=== PATIENT | male | born 1950 | race Two or more races ===

== ENCOUNTER 2017-04-25 12:25 | Inpatient (IN) | payer OTHER ==
[~2017-04-25] VITALS: Ht 177.8 cm; Wt 71.6 kg
[2017-04-25] MEDS ORDERED: AMLO5TAB2 PO (12:41)
[2017-04-25] MEDS ORDERED: METO1TAB32 PO (12:41)
[2017-04-25] MEDS ORDERED: ASPI81TA85 PO (12:41)
[2017-04-25 13:55] LABS: BASO # 0.2 K/mm3 (0.0-0.2); BASO % 1.6 % (0.0-1.0); EOS # 0.3 K/mm3 (0.0-0.50); EOS % 2.6 % (0.0-3.0); LARGE UNSTAINED CELL # 0.3 K/mm3 (0.0-0.4); LARGE UNSTAINED CELL % 2.9 % (0.0-4.0); LYMPH # 2.8 K/mm3 (1.5-4.5); LYMPH % 24.8 % (24.0-44.0); MEAN CORPUSCULAR HEMOGLOBIN 33.2 pg (27.0-33.0); MEAN CORPUSCULAR HGB CONC 33.1 g/dl (32.0-36.5); MEAN CORPUSCULAR VOLUME 100.3 fl (80.0-96.0); MONO % 8.9 % (0.0-5.0); NEUTROPHILS # 6.6 K/mm3 (1.8-7.7); NEUTROPHILS % 59.1 % (36.0-66.0); PLATELET COUNT, AUTOMATED 389 k/mm3 (150-450); RED CELL DISTRIBUTION WIDTH 12.6 % (11.5-14.5); WHITE BLOOD COUNT 11.2 K/mm3 (4.0-10.0)
[2017-04-25 14:01] LABS: INR 0.87
--- NOTE | 2017-04-25 14:07 | REP ---
REASON: Stroke-like symptoms. PRIORS: None. There is an area of abnormal lucency in the right parieto-occipital region measuring approximately 3 cm. There is an additional area of abnormal lucency seen in the centrum semiovale on the right measuring approximately 2.5 cm. A small focus of low density is seen in the head of the caudate nucleus on the right. There is no acute intracranial hemorrhage. There is no shift of the midline structures. The ventricles and sulci are within normal limits for the patient's age. There is no skull fracture. The imaged paranasal sinuses and mastoid air cells are clear. IMPRESSION: Age undetermined but at least subacute infarctions in the right parietal lobe and head of the caudate nucleus on the right, as described above. Signed by Krish Rivers DO 04/25/2017 02:30 P
[2017-04-25 14:22] LABS: ANION GAP 5 MEQ/L (8-16); BLOOD UREA NITROGEN 17 MG/DL (7-18); CARBON DIOXIDE LEVEL 30 MEQ/L (21-32); CHLORIDE LEVEL 101 MEQ/L (98-107); CREATININE FOR GFR 1.24 MG/DL (0.70-1.30); GLOMERULAR FILTRATION RATE > 60.0 (>49); GLUCOSE, FASTING 93 MG/DL (80-110); POTASSIUM SERUM 4.1 MEQ/L (3.5-5.1); SODIUM LEVEL 136 MEQ/L (136-145)
--- NOTE | 2017-04-25 15:11 | REP ---
CHEST: Single view. No comparison. There is no evidence of acute infiltrate. No pleural effusion is seen. The heart is normal in size. The mediastinal silhouette is unremarkable. The visualized osseous structures are intact. IMPRESSION: No acute pulmonary disease. Signed by Yao Hernandez MD 04/25/2017 03:32 P
--- NOTE | 2017-04-25 15:15 | HPEPDOC ---
Medical History and Physical Date of Admission 04/25/17 History and Physical ATTENDING: Dr. Miner PCP: Dr Berg. [place] CC: neurologic deficits HPI: 66yoM with a past medical history significant for HTN accompanied to the ED by his son. His son assisted him to [place] from [place] after an apparent fall approximately 1 week ago. The patient states about one week ago he was getting something out of the refrigerator when he "tipped over" and fell to the floor. He denies loss of consciousness. Denies headache injury. He states he subsequently got up and "went about my business". Friend subsequently checked in on him and reported to his son that he was noted to be "off ". His son brought him back to [place] from [place] for further evaluation. The patient states he has felt "a little bit goofy " and at times his vision seems slightly blurry and he feels somewhat dizzy. According to his son on Monday they noticed some possible facial drooping which seemed to subsequently improved. They have also noticed shuffling gait and some difficulty with word finding. The patient denies headache, diplopia, vertigo, dysarthria or dysphagia. He denies weakness in arms or legs. No numbness or tingling. Denies any fevers, chills, weakness, fatigue, BENAVIDES, CP, SOB, cough, palpitations, abdominal pain, N/V/D or changes in bowel or bladder habits. Upon presentation to the hospital the patient was found to have subacute CVA, thus the hospitalist team was consulted. PMHx: HTN Tobacco use PSHX: Splenectomy. Hernia repair SOCHX: Resides in: [place], lives alone Marital Status: Kids: 1 Employment: Retired from [employer] Tobacco use: One pack per day for 50 years ETOH: "Whatever I want", patient states 2 beers in the past 10 days Illicit Drugs: Denies Recent travel: Traveled here from [place] Advanced directives: None FAMHX: Mother: , unknown Father: , CVA Siblings: One half brother Alive, well Children: Alive, well Unexpected deaths due to medical reasons: None. ROS: As noted in HPI, otherwise 11pt ROS of systems reviewed and unremarkable. PE: GEN: 66 yo M, appears stated age. Well-nourished, well developed. No acute distress. Alert and oriented x 3. Pleasant, interactive. HEENT: Normocephalic, atraumatic. Pupils are equal, round, and reactive to light. Extraocular movements are intact. No nystagmus appreciated. Sclera are nonicteric. Conjunctiva without injection. Nose midline. Nasal turbinates without bogginess. EACs both patent BL. The patient has puffing out his cheeks and smiling without asymmetry noted. Moist mucous membranes. Upper dentures. Pharynx pink and moist, no cobblestoning. Neck supple, trachea midline. No lymphadenopathy or thyromegaly appreciated. CHEST: Regular rate and rhythm, +S1, +S2 LUNGS: Clear to auscultation bilaterally. No wheezes, rales, or rhonchi. Breathing appears symmetric and easy. Patient is speaking in full sentences. No accessory muscle use. ABD: Round, soft, non-tender, non-distended. +Bowel sounds throughout. No rebound or guarding. No costovertebral angle tenderness. EXT: Pulses 2+ bilaterally dorsalis pedis and radial. No lower extremity edema appreciated. SKIN: [place], dry, warm. Capillary refill <2sec. No rashes. NEURO: Alert and oriented x 3. Cranial nerves III-XII are intact. Speech somewhat slow at times and sometimes has difficulty answering questions. No apparent weakness in upper or lower extremities. FTN intact. MAURO intact. Gait is not tested at this time. CXR: pending CT: Age undetermined but at least subacute infarctions in the right parietal lobe and head of the caudate nucleus on the right, as described above EKG: SB 55 bpm, NSST abn. A&P: 66yoM with a past medical history significant for HTN accompanied to the ED by his son. His son assisted him to [place] from [place] after an apparent fall approximately 1 week ago. The patient states about one week ago he was getting something out of the refrigerator when he "tipped over" and fell to the floor. He denies loss of consciousness. Denies headache injury. He states he subsequently got up and "went about my business". Friend subsequently checked in on him and reported to his son that he was noted to be "off ". His son brought him back to [place] from [place] for further evaluation. The patient states he has felt "a little bit goofy " and at times his vision seems slightly blurry and he feels somewhat dizzy. According to his son on Monday they noticed some possible facial drooping which seemed to subsequently improved. They have also noticed shuffling gait and some difficulty with word finding. 1. The patient will be admitted to PCU for at least [address] Miner's service. Patient is discussed with Dr. Rodriguez. 2. Subacute CVA. PCU, TM. Add on lipid profile. Serial CIP/troponin. MRI/MRA brain requested. Carotid ultrasound requested. TTE requested. Request neurology consultation, discussed with Dr Pan who will see Pt. Recommends [id number] pending results of testing. Lipitor 20 mg daily. PT/OT/speech therapy. Request copy of records from PCP in [place]. 3. Hypertension. Continue Norvasc 5 mg daily with hold parameters. 4. Sinus bradycardia. PCU/TM. DVT prophylaxis. The patient is a full code. Vital Signs Vital Signs Date Time Temp Pulse Resp B/P (MAP) Pulse Ox O2 Delivery O2 Flow Rate FiO2 04/25/17 14:25 62 99 04/25/17 14:22 153/70 (97) 04/25/17 14:12 Room Air 04/25/17 14:11 18 04/25/17 12:26 97.8 Laboratory Data Labs 24H Laboratory Tests 2 04/25/17 13:38: White Blood Count 11.2H, Red Blood Count 4.65, Hemoglobin 15.5, Hematocrit 46.7 , Mean Corpuscular Volume 100.3H, Mean Corpuscular Hemoglobin 33.2H, Mean Corpuscular Hemoglobin Concent 33.1, Red Cell Distribution Width 12.6, Platelet Count 389, Neutrophils (%) (Auto) 59.1, Lymphocytes (%) (Auto) 24.8, Monocytes ( %) (Auto) 8.9H, Eosinophils (%) (Auto) 2.6, Basophils (%) (Auto) 1.6H, Neutrophils # (Auto) 6.6, Lymphocytes # (Auto) 2.8, Monocytes # (Auto) 1.0H, Eosinophils # (Auto) 0.3, Basophils # (Auto) 0.2, Large Unclassified Cells % 2.9 , Large Unclassified Cells # 0.3, Prothrombin Time 11.9L, Prothromb Time International Ratio 0.87, Activated Partial Thromboplast Time 25.5L, Anion Gap 5L, Glomerular Filtration Rate > 60.0, Blood Urea Nitrogen 17, Creatinine 1.24, Sodium Level 136, Potassium Level 4.1, Chloride Level 101, Carbon Dioxide Level 30, Calcium Level 9.0, Total Creatine Kinase 67, Creatine Kinase MB 1.0, Creatine Kinase MB Relative Index 1.49, Troponin I < 0.02 04/25/17 13:57: Bedside Glucose (Misc Panel) 87 CBC/BMP Laboratory Tests 04/25/17 13:38 Red Blood Count 4.65, Mean Corpuscular Volume 100.3 H, Mean Corpuscular Hemoglobin 33.2 H, Mean Corpuscular Hemoglobin Concent 33.1, Red Cell Distribution Width 12.6, Neutrophils (%) (Auto) 59.1, Lymphocytes (%) (Auto) 24.8, Monocytes (%) (Auto) 8.9 H, Eosinophils (%) (Auto) 2.6, Basophils (%) ( Auto) 1.6 H, Neutrophils # (Auto) 6.6, Lymphocytes # (Auto) 2.8, Monocytes # ( Auto) 1.0 H, Eosinophils # (Auto) 0.3, Basophils # (Auto) 0.2, Calcium Level 9.0 , Total Creatine Kinase 67 Home Medications Scheduled Amlodipine Besylate (Amlodipine Besylate) 5 Mg Tab, 5 MG PO DAILY Aspirin (Aspirin) 325 Mg Tab, 325 MG PO DAILY Atorvastatin Calcium (Atorvastatin Calcium) 20 Mg Tab, 20 MG PO QHS Cyanocobalamin (B-12) 500 Mcg Tab, 500 MCG PO DAILY Nicotine (Nicotine Transdermal Syst) 14 Mg/24 Hr Dis, 1 PATCH TD DAILY Allergies Coded Allergies: No Known Allergies (Unverified , 04/25/17) Esther Canales Apr 25, 2017 15:15 SOL RODRIGUEZ MD May 14, 2017 22:03
[2017-04-25] MEDS: ASPIRIN 325 MG TAB PO SCH (15:35)
[2017-04-25] MEDS ORDERED: NICOTINE 21MG/24HR 1 EA TRANSDERMAL TD STA (17:15)
--- NOTE | 2017-04-25 17:25 | REP ---
CAROTID ULTRASOUND: Real-time ultrasound evaluation and duplex Doppler interrogation of the extracranial carotid vasculature is performed. There is mild to moderate plaquing and narrowing in both carotid bulbs extending into the internal and external carotid arteries. Luminal narrowing is less than 50%. There is no evidence of hemodynamically significant stenosis of either internal carotid artery. Normal flow velocities are seen. The vertebral arteries demonstrate normal direction of flow. RIGHT LEFT Peak systolic velocity ICA 65 cm/s 56.1 cm/s End diastolic velocity ICA 10.3 cm/s 16.2 cm/s Peak systolic velocity CCA 99.7 cm/s 83.8 cm/s Peak systolic velocity ECA 106.9 cm/s 134.7 cm/s ICA/CCA ratio 0.65 0.67 IMPRESSION: Bilateral luminal narrowing of the internal carotid arteries less than 50%. No evidence of hemodynamically significant stenosis. Signed by Yao Hernandez MD 04/25/2017 05:16 P
[2017-04-25 19:30] VITALS: BP 162/72
[2017-04-25] MEDS: ATORVASTATIN 20 MG TAB PO SCH (20:03)
[2017-04-25 20:55] VITALS: BP 167/79
[2017-04-26] VITALS (7 sets, daily range): BP systolic 134–156; BP diastolic 70–86
[2017-04-26 05:23] LABS: MEAN CORPUSCULAR HEMOGLOBIN 32.9 pg (27.0-33.0); MEAN CORPUSCULAR HGB CONC 32.7 g/dl (32.0-36.5); MEAN CORPUSCULAR VOLUME 100.4 fl (80.0-96.0); RED CELL DISTRIBUTION WIDTH 12.8 % (11.5-14.5); WHITE BLOOD COUNT 9.7 K/mm3 (4.0-10.0)
[2017-04-26 05:47] LABS: ALBUMIN 3.1 GM/DL (3.2-5.2); ALBUMIN/GLOBULIN RATIO 1.07 (1.00-1.93); ALKALINE PHOSPHATASE 47 U/L (45-117); ALT/SGPT 29 U/L (12-78); ANION GAP 6 MEQ/L (8-16); AST/SGOT 17 U/L (15-37); BILIRUBIN,TOTAL 0.4 MG/DL (0.2-1.0); BLOOD UREA NITROGEN 19 MG/DL (7-18); CALCIUM LEVEL 8.7 MG/DL (8.8-10.2); CARBON DIOXIDE LEVEL 26 MEQ/L (21-32); CHLORIDE LEVEL 104 MEQ/L (98-107); CREATININE FOR GFR 0.99 MG/DL (0.70-1.30); GLOMERULAR FILTRATION RATE > 60.0 (>49); GLUCOSE, FASTING 100 MG/DL (80-110); SODIUM LEVEL 136 MEQ/L (136-145)
[2017-04-26] MEDS: ASPIRIN 325 MG TAB PO SCH (08:30)
[2017-04-26] MEDS: amLODIPine 5 MG TAB PO SCH (08:30)
[2017-04-26] MEDS: NICOTINE 14 MG/24 HR TRANSDERMAL TD SCH (08:31)
--- NOTE | 2017-04-26 09:03 | CR ---
DATE OF CONSULTATION: 04/25/2017 REFERRING PHYSICIAN: Dr. Damian Rodriguez REASON FOR CONSULTATION: Gait difficulty and left-sided weakness. HISTORY OF PRESENT ILLNESS: Yobany Lanier is a 66-year-old man from [place] who was brought to emergency department by his son. Patient was living in [place]. He states that 12 days ago, on , he was in his kitchen and was trying to open the refrigerator when he tripped and fell. He could not get up for 5 minutes. There was no loss of consciousness. He decided to take it easy and go about his business and did not seek medical attention. He did not have any numbness, weakness of one side or the other. He denies neck pain, back pain, loss of consciousness or seizures. He was found by his daughter 3 days later, on Monday, and he did not seem fully alert. He did not talk and walk normally. He had extremely low energy. He seemed a little off and a little bit goofy. There was mentioning of noticing some facial droop. His son brought him to [place] and he was brought to [facility] for further evaluation. He noted some word-finding difficulty and shuffling gait. DIAGNOSTIC STUDIES: A CT scan of head, MRI of brain showed subacute right parietal and caudate nucleus ischemic stroke. His MRA brain ultrasound of neck are pending. PAST MEDICAL HISTORY: 1. Hypertension. 2. Splenectomy. 3. Hernia repair. SOCIAL HISTORY: He was living in [place]. He smokes one pack per day. He denies alcohol or illicit drugs. FAMILY HISTORY: Father had stroke. HOME MEDICATIONS: - Aspirin 81 mg by mouth daily, and he was on a blood pressure medicine but his son is not sure about the name of his blood pressure medicine. REVIEW OF SYSTEMS: All systems were reviewed and were found to be noncontributory except as mentioned in history present illness. PHYSICAL EXAMINATION: Blood pressure 192/79, pulse 62, respiratory rate 18, 97% saturation on room air. Heart: Regular rate and rhythm. Lungs: Clear to auscultation. Abdomen: Soft, nontender, nondistended. Neurologic exam: Patient is awake, alert, oriented to place, person and time. Normal speech, comprehension and repetition. Extraocular muscles are intact. No facial weakness. Tongue and uvula are Midline. 5/5 strength in all four extremities. He has decreased left hand coordination. He has left-sided mild dysmetria. His gait is mildly unsteady and mildly ataxic due to left-sided dysmetria. He has decreased rapid finger movements of left hand. Deep tendon flexes are 2+ throughout. Normal sensation to light touch, pinprick, vibration sensation, etc. ASSESSMENT: 1. Subacute right parietal and caudate nucleus ischemic strokes. 2. Tobacco abuse. 3. Hypertension. PLAN: 1. MRA brain. 2. Ultrasound of neck and echocardiogram. 3. He must quit smoking. 4. Lipitor 20 mg by mouth daily. 5. Aspirin 325 mg by mouth daily. 6. Physical and occupational therapy. 7. Follow with our office in 1 month after hospital discharge.
[2017-04-26 09:39] LABS: VITAMIN B12 LEVEL 246 PG/ML (247-911)
[2017-04-26 09:40] LABS: FOLATE 8.3 NG/ML (>5.4)
--- NOTE | 2017-04-26 10:51 | REP ---
REASON FOR EXAM: Weakness and falling. COMPARISON: None. The craniovertebral junction is within normal limits. The ventricles and sulci are within normal limits. There are no extra-axial fluid collections. There is no shift of the midline structures. Scattered T2 and FLAIR hypersignal intensities are seen in the periventricular deep cerebral white matter and in the deep cerebral white matter of the nair radiata and centrum semiovale bilaterally, right greater than left. On the DWI images, increased signal is seen in the head of the caudate nucleus on the right extending into the right internal capsule along with hypersignal in the right posterior parietal lobe region near the parieto-occipital watershed distribution. These areas show no definitive abnormal ADC low signal correlates. There is no evidence of an acute intracranial hemorrhage. The orbital and petrous structures, cerebellopontine angles, and posterior fossa are within normal limits. The sella turcica, cavernous, and paracavernous structures are within normal limits. There is mucosal thickening in the right maxillary sinus and mild mucosal thickening in the ethmoid bulla. IMPRESSION: 1. Subacute infarction involving the right cerebral hemisphere as described above and extending into the right cerebral subcortical nair radiata. 2. Deep white matter ischemic disease. 3. Right maxillary sinus mucosal thickening. This examination was obtained in my [place]ia 04/25/2017 at 4:23 p.m. and has been brought to my attention for the first time for interpretation today at this time. Signed by Krish Rivers DO 04/26/2017 02:21 P
--- NOTE | 2017-04-26 10:53 | REP ---
REASON: Weakness and falling. PRIORS: None. TECHNIQUE: MIP reformatted 3D images of the [place] and proximal intracranial vasculature were obtained. The source images wee obtained in the axial scan plane using gradient-echo technique. FINDINGS: There is no evidence of an aneurysm or AVM. Perfusion to the hemispheres is symmetric. There is no evidence of significant signal decrease that would be considered consistent with an area of occlusion or severe stenosis. IMPRESSION: Unremarkable brain MRA. Signed by Krish Rivers DO 04/26/2017 02:21 P
--- NOTE | 2017-04-26 11:48 | IPNPDOC ---
Subjective Date Seen The patient was seen on 04/26/17. Subjective Chief Complaint/HPI The patient is a 66-year-old male admitted with a reason for visit of CVA. Events since last encounter feeling well , does not offer any complaints, no trouble in speech , no difficulty in swallowing , does have some disbalance which he says has been there from before and family says he is having shuffling gait. no fever or chills, no chest pain or sob, no abdominal pain nausea or vomiting or diarrhea Objective Physical Examination General Exam: Positive: Alert, Cooperative, No Acute Distress Eye Exam: Positive: PERRLA, Conjunctiva & lids normal, EOMI, Negative: Sclera icteric ENT Exam: Positive: Atraumatic, Mucous membr. moist/pink, Pharynx Normal Neck Exam: Positive: Supple, Negative: JVD, thyromegaly Chest Exam: Positive: Clear to auscultation, Normal air movement Heart Exam: Positive: Rate Normal, Regular Rhythm, Normal S1, Normal S2, Negative: Murmurs, Rubs Telemetry: Positive: No significant arrhythmia Abdomen Exam: Positive: Normal bowel sounds, Soft, Negative: Tenderness, Hepatospenomegaly Extremity Exam: Positive: Normal pulses, Negative: Clubbing, Cyanosis, Edema Assessment /Plan Problems (1) CVA (cerebrovascular accident) Status: Acute Problem Text: subacute seems to have occurred 2 weeks ago. will continue with ASA and statin will monitor on telemetry for any arrhythmias infarction in the right cerebral hemisphere in the parietal area. echo has been ordered. PT . (2) Hypertension Status: Chronic (3) Encounter for smoking cessation counseling Status: Chronic Problem Text: patient says using the nicotine patach and is trying to stop on his own , He is willing to continue with the nicotine patches at home to help with quitting smoking. Plan/VTE VTE Prophylaxis Ordered?: Yes VS, I&O, 24H, Fishbone Vital Signs/I&O Vital Signs Date Time Temp Pulse Resp B/P (MAP) Pulse Ox O2 Delivery O2 Flow Rate FiO2 04/26/17 08:30 66 137/78 04/26/17 08:00 98.7 18 95 Room Air I&O- Last 24 Hours up to 6 AM 04/26/17 06:00 Intake Total 0 ml Output Total 500 ml Balance -500 ml Laboratory Data 24H LABS Laboratory Tests 2 04/25/17 13:38: White Blood Count 11.2H, Red Blood Count 4.65, Hemoglobin 15.5, Hematocrit 46.7 , Mean Corpuscular Volume 100.3H, Mean Corpuscular Hemoglobin 33.2H, Mean Corpuscular Hemoglobin Concent 33.1, Red Cell Distribution Width 12.6, Platelet Count 389, Neutrophils (%) (Auto) 59.1, Lymphocytes (%) (Auto) 24.8, Monocytes ( %) (Auto) 8.9H, Eosinophils (%) (Auto) 2.6, Basophils (%) (Auto) 1.6H, Neutrophils # (Auto) 6.6, Lymphocytes # (Auto) 2.8, Monocytes # (Auto) 1.0H, Eosinophils # (Auto) 0.3, Basophils # (Auto) 0.2, Large Unclassified Cells % 2.9 , Large Unclassified Cells # 0.3, Prothrombin Time 11.9L, Prothromb Time International Ratio 0.87, Activated Partial Thromboplast Time 25.5L, Anion Gap 5L, Glomerular Filtration Rate > 60.0, Blood Urea Nitrogen 17, Creatinine 1.24, Sodium Level 136, Potassium Level 4.1, Chloride Level 101, Carbon Dioxide Level 30, Calcium Level 9.0, Total Creatine Kinase 67, Creatine Kinase MB 1.0, Creatine Kinase MB Relative Index 1.49, Troponin I < 0.02 04/25/17 13:57: Bedside Glucose (Misc Panel) 87 04/25/17 15:29: Triglycerides Level 174H, LDL Cholesterol 125.2H, Total Cholesterol 193, Non- HDL Cholesterol (LDL + VLDL) 160, Total HDL Cholesterol 33L, Cholesterol/HDL Ratio 5.848H 04/25/17 15:54: Urine Appearance CLEAR, Urine Color YELLOW, Urine pH 6.0, Urine Specific [place] 1.010, Urine Protein 1+H, Urine Glucose (UA) NEGATIVE, Urine Ketones NEGATIVE, Urine Urobilinogen 0.2, Urine Bilirubin NEGATIVE, Urine Leukocyte Esterase NEGATIVE, Urine Blood NEGATIVE, Urine Nitrite NEGATIVE, Urine WBC (Auto ) 1, Urine RBC (Auto) 1, Urine Hyaline Casts (Auto) 0, Urine Bacteria (Auto) NEGATIVE, Urine Squamous Epithelial Cells 0, Urine Sperm (Auto) 04/25/17 17:44: Total Creatine Kinase 63, Creatine Kinase MB 1.0, Creatine Kinase MB Relative Index 1.58, Troponin I 0.02 04/26/17 02:11: Total Creatine Kinase 50, Creatine Kinase MB 1.0, Creatine Kinase MB Relative Index 2.00, Troponin I 0.02 04/26/17 05:04: Anion Gap 6L, Glomerular Filtration Rate > 60.0, Blood Urea Nitrogen 19H, Creatinine 0.99, Sodium Level 136, Potassium Level 4.0, Chloride Level 104, Carbon Dioxide Level 26, Calcium Level 8.7L, Aspartate Amino Transf (AST/SGOT) 17, Alanine Aminotransferase (ALT/SGPT) 29, Alkaline Phosphatase 47, Total Bilirubin 0.4, Total Protein 6.0L, Albumin 3.1L, Albumin/Globulin Ratio 1.07, Vitamin B12 Level 246L, Folate 8.3 04/26/17 09:49: Total Creatine Kinase 51, Creatine Kinase MB 1.0, Creatine Kinase MB Relative Index 1.96, Troponin I < 0.02 CBC/BMP Laboratory Tests 04/25/17 13:38 Red Blood Count 4.65, Mean Corpuscular Volume 100.3 H, Mean Corpuscular Hemoglobin 33.2 H, Mean Corpuscular Hemoglobin Concent 33.1, Red Cell Distribution Width 12.6, Neutrophils (%) (Auto) 59.1, Lymphocytes (%) (Auto) 24.8, Monocytes (%) (Auto) 8.9 H, Eosinophils (%) (Auto) 2.6, Basophils (%) ( Auto) 1.6 H, Neutrophils # (Auto) 6.6, Lymphocytes # (Auto) 2.8, Monocytes # ( Auto) 1.0 H, Eosinophils # (Auto) 0.3, Basophils # (Auto) 0.2, Calcium Level 9.0 , Total Creatine Kinase 67 04/26/17 05:04 Red Blood Count 4.25 L, Mean Corpuscular Volume 100.4 H, Mean Corpuscular Hemoglobin 32.9, Mean Corpuscular Hemoglobin Concent 32.7, Red Cell Distribution Width 12.8, Calcium Level 8.7 L, Aspartate Amino Transf (AST/SGOT) 17, Alanine Aminotransferase (ALT/SGPT) 29, Alkaline Phosphatase 47, Total Bilirubin 0.4, Total Protein 6.0 L, Albumin 3.1 L KATRINA IRBY MD Apr 26, 2017 11:48
[2017-04-26] MEDS: ENOXAPARIN 40 MG/0.4 ML SYRINGE (J1650) SC SCH (12:30)
--- NOTE | 2017-04-26 16:39 | ECHO ---
DATE OF PROCEDURE: 04/25/2017 REFERRING PHYSICIAN: ROD Alegre. INDICATION: Acute stroke. HEIGHT: 178 cm WEIGHT: 77.2 kg 2D MEASUREMENTS: Aortic root: 3.2 cm Left atrium: 3.3 cm Ventricular septum: 1.29 cm Posterior wall: 1.32 cm Left ventricle diastole: 3.3 cm LVOT: 2.2 cm Inferior vena cava: 1.0 cm with normal respiratory variation. DOPPLER MEASUREMENTS: Aortic valve velocity: 108 cm/s LVOT velocity: 93.2 cm/s LVOT VTI: 14.1 cm Mitral E velocity: 61.7 cm/s Mitral A velocity: 69.1 cm/s Mitral deceleration time: 250 ms Trace pulmonic regurgitation. No tricuspid regurgitation. Pulmonary artery systolic pressure 22 mmHg by pulmonary artery acceleration time method. MITRAL ANNULAR TISSUE DOPPLER: E prime septal: 7.1 cm/s E prime lateral: 9.9 cm/s DESCRIPTION: The rhythm was sinus. This is a moderately technically difficult echocardiogram. No pericardial effusion. CONCLUSIONS: 1. Normal left ventricle size. Mild concentric left ventricular hypertrophy. No left ventricular (LV) wall motion abnormalities. Normal LV systolic function. Left ventricular ejection fraction (LVEF) of 70% by visual estimate. Grade 1 LV diastolic dysfunction (impaired relaxation filling pattern). 2. Mild aortic valve sclerosis with a 3-cuspid aortic valve. No aortic regurgitation. 3. Mild mitral annular calcification. No mitral regirgitation. 4. Otherwise normal appearing echocardiogram Doppler.
[2017-04-26] MEDS: ATORVASTATIN 20 MG TAB PO SCH (21:43)
[2017-04-27 05:08] LABS: MEAN CORPUSCULAR HEMOGLOBIN 33.9 pg (27.0-33.0); MEAN CORPUSCULAR VOLUME 99.6 fl (80.0-96.0); RED CELL DISTRIBUTION WIDTH 12.9 % (11.5-14.5)
[2017-04-27 05:10] VITALS: BP 167/77
[2017-04-27 05:31] LABS: ALBUMIN 2.9 GM/DL (3.2-5.2); ALBUMIN/GLOBULIN RATIO 0.83 (1.00-1.93); ALKALINE PHOSPHATASE 47 U/L (45-117); ALT/SGPT 28 U/L (12-78); ANION GAP 7 MEQ/L (8-16); AST/SGOT 14 U/L (15-37); BILIRUBIN,TOTAL 0.5 MG/DL (0.2-1.0); BLOOD UREA NITROGEN 17 MG/DL (7-18); CALCIUM LEVEL 8.1 MG/DL (8.8-10.2); CARBON DIOXIDE LEVEL 27 MEQ/L (21-32); CHLORIDE LEVEL 104 MEQ/L (98-107); CREATININE FOR GFR 1.14 MG/DL (0.70-1.30); GLOMERULAR FILTRATION RATE > 60.0 (>49); GLUCOSE, FASTING 95 MG/DL (80-110); POTASSIUM SERUM 3.9 MEQ/L (3.5-5.1); SODIUM LEVEL 138 MEQ/L (136-145); TOTAL PROTEIN 6.4 GM/DL (6.4-8.2)
[2017-04-27 07:58] VITALS: BP 156/74
[2017-04-27] MEDS ORDERED: ASPI325T PO (08:44)
[2017-04-27] MEDS ORDERED: ATOR1TAB21 PO (08:44)
[2017-04-27] MEDS ORDERED: NICO14PA TD (08:44)
[2017-04-27] MEDS: NICOTINE 14 MG/24 HR TRANSDERMAL TD SCH (09:23)
[2017-04-27] MEDS: ASPIRIN 325 MG TAB PO SCH (09:23)
[2017-04-27 09:24] VITALS: BP 156/74
[2017-04-27] MEDS: ENOXAPARIN 40 MG/0.4 ML SYRINGE (J1650) SC SCH (09:24)
[2017-04-27] MEDS: amLODIPine 5 MG TAB PO SCH (09:24)
--- NOTE | 2017-04-27 11:14 | ECGEPIP ---
Stationary ECG Study [facility] - ED Test Date: 2017-04-25 Pat Name: LISA BO Department: Room: - Gender: M [employer] Set Up Operator: : [id number] Requested By: Joseph Bartlett Order Number: [id number] Reading MD: Serena Oquendo Measurements Intervals [place] Rate: 55 P: 68 NC: 169 QRS: 42 QRSD: 88 T: 88 QT: 395 QTc: 379 Interpretive Statements SINUS BRADYCARDIA NONSPECIFIC T-WAVE ABNORMALITY NO PRIOR FOR COMPARISON Electronically Signed On 04-27-2017 11:13:34 EDT by Serena Oquendo
[2017-04-30] MEDS ORDERED: B-12500T2 PO ×2 (12:14→12:15)
--- NOTE | 2017-04-30 21:37 | DSES ---
DATE OF ADMISSION: 04/25/2017 DATE OF DISCHARGE: 04/27/2017 PRIMARY CARE PROVIDER: New primary care provider assigned to the patient. CONSULTATIONS IN THE HOSPITAL: Neurologist, Dr. Helen Pan. DISCHARGE DIAGNOSES: 1. Subacute right parietal and caudate nucleus ischemic strokes. 2. Hypertension. 3. Tobacco abuse. DISCHARGE MEDICATIONS: - aspirin 325 mg by mouth daily - atorvastatin 20 mg at bedtime - nicotine patch - amlodipine 5 mg by mouth daily HOSPITAL COURSE: This is a 66-year-old male who is from [place] and whose son resides in [place]. Patient had sustained a fall 2 weeks prior to admission without any loss of consciousness or any trauma. Since then, patient has been having trouble walking and some word finding difficulties with shuffling gait. Patient's son brought the patient to [place] and he continued to have the symptoms so they then brought the patient to the emergency room for evaluation. In the emergency department (ED), patient was found to have subacute right parietal lobe and caudate nucleus ischemic strokes for which patient was admitted to the hospital. Patient was monitored in telemetry for 48 hours without any arrhythmias. Patient was evaluated by physical therapy and it was felt that he was functioning at his baseline and did not need any physical therapy as an outpatient. On the day of discharge, patient did not have any complaints, his vital signs were stable, and he was functioning at his baseline. PHYSICAL EXAMINATION: VITAL SIGNS: Temperature 97.1, pulse 61, respiratory rate 18, blood pressure 156/74, pulse oximetry 96% in room air. GENERAL: Patient awake, alert, oriented times three, sitting up in bed, in no acute distress. HEENT: Normocephalic, atraumatic. Moist mucous membranes. Anicteric eyes. CHEST: Clear to auscultation. CARDIOVASCULAR: S1, S2, regular. No rub, murmur, or gallop ABDOMEN: Soft, nontender. Bowel sounds present. EXTREMITIES: No edema. LABORATORY DATA: WBC 10, hemoglobin 14.4, platelets 358. Sodium 138, potassium 3.9, chloride 104, bicarbonate 27, BUN 17, creatinine 1.1, glucose 95, vitamin B12 level is 246, folate is 8.3, triglycerides 174, cholesterol 193, total cholesterol LDL 125, HDL 33. Liver function tests are normal. Cardiac enzymes are negative. Coagulation studies are normal. Brain MRI shows subacute infarction involving the right cerebral hemisphere extending into the right cerebral subcortical nair radiata. MRA of the brain is unremarkable. Carotid ultrasound shows less than 50% bilateral luminal narrowing of the internal carotid arteries and external carotid arteries. Echocardiogram shows normal left ventricular systolic function, grade 1 diastolic dysfunction, no valvular abnormalities. DISPOSITION: Patient is discharged home in a stable condition. DISCHARGE INSTRUCTIONS: Patient to followup with new primary care provider in 1 week, patient to followup with neurology in 4 weeks. Regular diet. Activity as tolerated. Patient strongly advised to quit smoking.
== END 2017-04-27 11:35 | disposition home or self-care (01) | DRG 66 ==
LOC: M ED 12:25 → M ED INP 15:30 → M PCU 20:52
PROVIDERS: ADMIT Internal Medicine; ATTEND Internal Medicine Nephrology
DX: I63.9 Cerebral infarction, unspecified (principal); I10 Essential (primary) hypertension; F17.200 Nicotine dependence, unspecified, uncomplicated; Z79.82 Long term (current) use of aspirin; Z79.899 Other long term (current) drug therapy; R00.1 Bradycardia, unspecified